=== PATIENT | female | born 1960 | race Caucasian/White ===

== ENCOUNTER → 2021-05-24 | Outpatient (CLI) | payer OTHER ==
[2021-05-24 15:37] LABS: Creatinine, Urine Random 76.2 mg/dL (27.00-270.00); Microalb/Creat Ratio UR, Rand 12.1 mg/g (0.000-30.000); Microalbumin, Random Urine 9.22 mg/L (0.000-20.000)
== END | disposition home or self-care (01) ==
LOC: LAB SHORT 13:30 → LAB 13:30
PROVIDERS: Family Medicine
DX: E11.9 Type 2 diabetes mellitus without complications (principal)
CPT/HCPCS: 82043; 82570

== ENCOUNTER 2023-07-29 18:32 | Emergency (ER) | payer OTHER ==
[~2023-07-29] VITALS: Ht 154.9 cm; Wt 99.8 kg
[2023-07-29 19:08] LABS: BASOPHILS ABSOLUTE AUTO 0.02 K/mm3 (0.00-0.23); BASOPHILS PERCENT AUTO 0 % (0-2); EOSINOPHILS ABSOLUTE AUTO 0.01 K/mm3 (0.00-0.68); EOSINOPHILS PERCENT AUTO 0 % (0-6); Hematocrit 40.8 % (33.0-51.0); IMMATURE GRAN ABSOLUTE AUTO 0.05 K/mm3 (0.00-0.10); IMMATURE GRAN PERCENT AUTO 0 % (0-1); LYMPHOCYTES ABSOLUTE AUTO 0.98 K/mm3 (0.84-5.20); LYMPHOCYTES PERCENT AUTO 7 % (21-46); MONOCYTES ABSOLUTE AUTO 0.77 K/mm3 (0.16-1.47); MONOCYTES PERCENT AUTO 6 % (4-13); Mean Corpuscular HGB 27.8 pg (26.0-34.0); Mean Corpuscular HGB Conc 31.9 g/dL (31.5-36.5); Mean Corpuscular Volume 87 fL (80-100); Mean Platelet Volume 10.2 fL (9.1-12.4); NEUTROPHILS ABSOLUTE AUTO 11.88 K/mm3 (1.96-9.15); NEUTROPHILS PERCENT AUTO 87 % (41-73); Platelet Count 329 K/mm3 (150-400); RDW Coefficient Variation 13.8 % (11.7-14.2); RDW Standard Deviation 44.3 fL (35.1-46.3); Red Blood Cell Count 4.68 M/mm3 (3.80-5.20); White Blood Cell Count 13.71 K/mm3 (4.00-11.30)
[2023-07-29 19:45] LABS: Bun/Creatinine Ratio 28.9 (12.0-20.0); Calcium, Blood 9.5 mg/dL (8.5-10.1); Creatinine, Blood 0.62 mg/dL (0.40-1.00); Potassium, Blood 4.1 mmol/L (3.5-5.5)
[2023-07-29] MEDS ORDERED: LOSA50 PO (21:52)
[2023-07-29] MEDS ORDERED: EUTHYROX150 MC1 PO (21:52)
[2023-07-29] MEDS ORDERED: Simvastatin20 MG PO (21:52)
[2023-07-29 21:53] LABS: Source, Urine Clean Catch
[2023-07-29 21:56] VITALS: BP 143/71
[2023-07-29 22:01] LABS: Bilirubin, Urine Neg (Neg); Blood, Urine 2+ (Neg); Glucose Qualitative, Urine Neg (Neg); Ketones, Urine 1+ (Neg); Leukocyte Esterase, Urine Neg (Neg); Nitrite, Urine Neg (Neg); Protein, Urine 2+ (Neg); Specific Gravity, Urine 1.025 (1.003-1.022); Urobilinogen, Urine NORM (Normal)
[2023-07-29 22:22] LABS: Appearance, Urine Hazy (Clear); Color, Urine Yellow (P-Yellow)
[2023-07-29 22:23] LABS: Bacteria Few /hpf; Mucus Light (0-Heavy); Red Blood Cells, Urine 0-2 /hpf (0-2); Squamous Epithelial Cells Few /hpf (Few); White Blood Cells, Urine 0-2 /hpf (0-5)
[2023-07-30 00:29] LABS: Alanine Aminotransfer (ALT/SGP 16 U/L (12-78); Albumin, Blood 3.5 g/dL (3.4-5.0); Alk Phos 80 U/L (50-136); Aspartate Aminotrans (AST/SGOT 18 U/L (12-37); Bilirubin, Direct <0.1 mg/dL (0.0-0.3); Bilirubin, Indirect Unable to Calculate mg/dL (0.1-0.7); Bilirubin, Total 0.3 mg/dL (0.1-1.0); Globulin, Blood 3.5 g/dL (2.2-4.0)
[2023-07-30] MEDS ORDERED: ALMACONE SUSPE355 ML PO (00:47)
[2023-07-30] MEDS ORDERED: FAMO20 PO (00:47)
== END 2023-07-30 01:15 | disposition home or self-care (01) ==
LOC: ER 18:32
PROVIDERS: Emergency Medicine; Physician Assistant
DX: K21.9 Gastro-esophageal reflux disease without esophagitis (principal); Z88.0 Allergy status to penicillin; Z79.890 Hormone replacement therapy; Z79.899 Other long term (current) drug therapy
CPT/HCPCS: 74019; 76705; 80048; 80076; 81001; 83690; 85025; 93005; 93010; 96374; 96375; 99284-25; A9270; J1885; J2405

== ENCOUNTER → 2023-08-01 | Outpatient (CLI) | payer OTHER ==
[~2023-08-01] MED LIST: ALMACONE SUSPE355 ML PO; EUTHYROX150 MC1 PO; FAMO20 PO; LOSA50 PO; Simvastatin20 MG PO
[2023-08-02 13:46] LABS: Stool Occult Bld Immuno 1 Negative (NEGATIVE)
== END ==
LOC: LAB 16:01 → LAB SHORT 16:01
PROVIDERS: Family Medicine
DX: K92.1 Melena (principal)
CPT/HCPCS: G0328

== ENCOUNTER 2023-10-03 13:08 | Inpatient (IN) | payer OTHER ==
[2023-10-03] VITALS (27 sets, daily range): BP systolic 107–146; BP diastolic 69–112
[~2023-10-03] VITALS: Ht 165.1 cm; Wt 97.9 kg
[2023-10-03 13:37] LABS: BASOPHILS ABSOLUTE AUTO 0.04 K/mm3 (0.00-0.23); BASOPHILS PERCENT AUTO 0 % (0-2); EOSINOPHILS ABSOLUTE AUTO 0.12 K/mm3 (0.00-0.68); EOSINOPHILS PERCENT AUTO 1 % (0-6); Hematocrit 40.4 % (33.0-51.0); Hemoglobin 12.4 g/dL (11.5-16.0); IMMATURE GRAN ABSOLUTE AUTO 0.15 K/mm3 (0.00-0.10); IMMATURE GRAN PERCENT AUTO 2 % (0-1); LYMPHOCYTES ABSOLUTE AUTO 3.51 K/mm3 (0.84-5.20); LYMPHOCYTES PERCENT AUTO 37 % (21-46); MONOCYTES ABSOLUTE AUTO 0.93 K/mm3 (0.16-1.47); MONOCYTES PERCENT AUTO 10 % (4-13); Mean Corpuscular HGB 27.9 pg (26.0-34.0); Mean Corpuscular HGB Conc 30.7 g/dL (31.5-36.5); Mean Corpuscular Volume 91 fL (80-100); Mean Platelet Volume 9.8 fL (9.1-12.4); NEUTROPHILS ABSOLUTE AUTO 4.86 K/mm3 (1.96-9.15); NEUTROPHILS PERCENT AUTO 51 % (41-73); Platelet Count 366 K/mm3 (150-400); RDW Coefficient Variation 15.6 % (11.7-14.2); Red Blood Cell Count 4.44 M/mm3 (3.80-5.20); White Blood Cell Count 9.61 K/mm3 (4.00-11.30)
[2023-10-03 13:53] LABS: Base Excess Venous -3.3 mmol/L; Bicarbonate Venous 21.4 mmol/L (24.0-30.0); PCO2 Venous 46.5 mmHg (38-42)
[2023-10-03 14:01] LABS: Albumin, Blood 3.2 g/dL (3.4-5.0); Albumin/Globulin Ratio 0.9 (0.8-1.8); Bilirubin, Total 0.2 mg/dL (0.1-1.0); Bun/Creatinine Ratio 19.6 (12.0-20.0); Calcium, Blood 8.3 mg/dL (8.5-10.1); Creatinine, Blood 0.82 mg/dL (0.40-1.00); Globulin, Blood 3.6 g/dL (2.2-4.0); Magnesium, Blood 2.1 mg/dL (1.6-2.4); Potassium, Blood 4.5 mmol/L (3.5-5.5); Total Protein, Blood 6.8 g/dL (6.4-8.2)
[2023-10-03] MEDS ORDERED: OMEP20ER PO (14:46)
[2023-10-03] MEDS ORDERED: EUTHYROX175 MC1 PO (14:46)
[2023-10-03 15:14] LABS: Source, Urine Foley catheter
[2023-10-03 15:17] LABS: Bilirubin, Urine Neg (Neg); Blood, Urine 4+ (Neg); Color, Urine Yellow (P-Yellow); Glucose Qualitative, Urine 2+ (Neg); Ketones, Urine Neg (Neg); Leukocyte Esterase, Urine Neg (Neg); Nitrite, Urine Neg (Neg); Protein, Urine 4+ (Neg); Specific Gravity, Urine 1.015 (1.003-1.022); Urobilinogen, Urine NORM (Normal)
[2023-10-03 15:21] LABS: Appearance, Urine Hazy (Clear)
[2023-10-03 15:29] LABS: Bacteria Many /hpf; Granular Casts 0-2 /lpf (0); Hyaline Casts 0-2 /lpf (0-2); Red Blood Cells, Urine 25-50 /hpf (0-2); Squamous Epithelial Cells Mod /hpf (Few)
[2023-10-03 15:30] LABS: Transitional Epithelial Cells Rare /hpf (0-Rare)
[2023-10-03 15:33] LABS: U Amphetamine Screen Not Detected; U Barbituate Screen Not Detected; U Benzodiazapine Screen Not Detected; U Buprenorphine Screen Not Detected; U Cannabinoids Screen Not Detected; U Cocaine Screen Not Detected; U Methadone Screen Not Detected; U Methamphetamine Screen Not Detected; U Opiates Screen Not Detected; U Oxycodone Screen Not Detected; U Phencyclidine Screen Not Detected
--- NOTE | 2023-10-03 15:44 | NUR ---
Supportive visit in the ED. Pt resting on gurney, is intubated, sedated, and non responsive. Pt's mother Licha, and Pt's sister Mirela at bedside. Offered gentle voice and therapeutic listening. 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 Family moved up from [place] some time back. Family reports Pt is high functioning but has struggled with finding a job since moving to [place]. Family reports Pt scored 1 point to high with her IQ to receive assistance with job placement here in [place]. In [place] Pt worked with assistance for job placement. Continued therapeutic visit. Pt to go to [place]. Family agreeable with continued Palliative Care visits. Spoke with Dr Evans and discussed case. Palliative Care will remain available
[2023-10-03 17:24] LABS: International Normalized Ratio 0.93; Prothrombin Time Results 9.8 Sec (9.7-11.5)
--- NOTE | 2023-10-03 17:59 | NUR ---
ADMIT PT ARRIVED TO ICU 7 AT 1655 VIA ER BED. PT IS INTUBATED AND SEDATED UPON ARRIVAL. PT TRANSFERED TO ICU BED. PT NOT RESPONSIVE TO VERBAL STIMULI. PT WITHDRAWS AND INTERNALLY ROTATES BUE'S AND BLE'S TO NOXIOUS STIMULI. MINIMAL COUGH AND GAG REFLEX WITH SUCTION. VENT SETTINGS AC 14, TV 450, PEEP 5, FIO2 30%. OGT IN PLACE. SPICER TEMP PROBE IN PLACE. AMIODARONE INFUSING AT 1 MG/MIN AND PROPOFOL AT 20 MCG/KG/MIN. NS STARTED AT 100 ML/HR. VITAL SIGNS STABLE AT THIS TIME. PT SISTER AND MOTHER AT BEDSIDE DISCUSSING PLAN OF CARE WITH DR BRIGGS AT THIS TIME. WILL CONTINUE TO MONITOR AND REPORT OFF TO ONCOMING RN.
[2023-10-04] VITALS (72 sets, daily range): BP systolic 94–145; BP diastolic 58–88
[2023-10-04 03:22] LABS: Hematocrit 37.5 % (33.0-51.0); Hemoglobin 12.1 g/dL (11.5-16.0); Mean Corpuscular HGB 28.5 pg (26.0-34.0); Mean Corpuscular HGB Conc 32.3 g/dL (31.5-36.5); Mean Corpuscular Volume 88 fL (80-100); Mean Platelet Volume 9.5 fL (9.1-12.4); Platelet Count 237 K/mm3 (150-400); RDW Coefficient Variation 16.1 % (11.7-14.2); RDW Standard Deviation 51.9 fL (35.1-46.3); Red Blood Cell Count 4.25 M/mm3 (3.80-5.20); White Blood Cell Count 11.58 K/mm3 (4.00-11.30)
[2023-10-04 03:42] LABS: Albumin/Globulin Ratio 0.9 (0.8-1.8); Bilirubin, Total 0.6 mg/dL (0.1-1.0); Calcium, Blood 8.6 mg/dL (8.5-10.1); Creatinine, Blood 0.74 mg/dL (0.40-1.00); Globulin, Blood 3.3 g/dL (2.2-4.0); Magnesium, Blood 1.9 mg/dL (1.6-2.4); Phosphorus, Blood 3.2 mg/dL (2.5-4.9); Potassium, Blood 4.3 mmol/L (3.5-5.5); Total Protein, Blood 6.3 g/dL (6.4-8.2)
--- NOTE | 2023-10-04 06:00 | NUR ---
SHIFT SUMMARY: NO ACUTE CHANGES OVERNIGHT. PT REMAINS INTUBATED AND SEDATED WITH VENT SETTINGS AC/VC 14/450/5/30% AND PROPOFOL GTT @ 20 MCG/KG/MIN. PT HAS BEEN ONLY RESPONSIVE TO PAIN; PT WITHDRAWLS FROM PAIN STIMULI AND OPENED EYES ONCE TO A PAIN STIMULI. PT OBSERVED MOVING ARMS AND LEGS PERIODICALLY; PUPILS ARE EQUAL AND RESPONSIVE TO LIGHT BILATERALLY. PT HAS POSTIVE GAG/COUGH OBSERVED. PT DOES NOT RESPOND TO VERBAL STIMULI OR FOLLOW COMMANDS AT THIS TIME. LUNG SOUNDS ARE CLEAR WITH DIM BASES; OCCAS. COARSE WHEN NEEDING TO BE SUCTIONED. SPUTUM CULTURE SENT OFF THIS SHIFT. PT ON MONITOR SHOWING BBB WITH HR 60-70, SBP 100-110; AMIO GTT @ 0.5 MG/HR. HYPOACTIVE BOWEL SOUNDS NOTED IN ALL QUADRANTS, ABD OBESE, SOFT AND NON-TENDER; OGT IN PLACE AND CLAMPED AT THIS TIME. PT HAS TEMP SPICER IN PLACE THAT IS DRAINING TO GRAVITY; URINE CLEAR, YELLOW WITH 1250 OUTPUT THIS SHIFT. PT TMAX AT 100.2, TYLENOL GIVEN PER EMAR AND TEMP DOWN TO 98.9. SKIN OVERALL INTACT, COOL, AND PPP X 4. PIV TO LWR WITH PROPOFOL INFUSING; PIV FLUSHES AND BLOOD RETURN NOTED. PIV TO SANCHO WITH AMIO AND NS @ 100 MLS/HR INFUSING; PIV FLUSHES AND BLOOD RETURN NOTED. PT RECIEVED COMPLETE BED BATH WITH CHG AND LINEN CHANGE THIS SHIFT. PT'S MOTHER AT BEDSIDE THROUGHOUT THE NIGHT AND UPDATED ON CARE PROVIDED. BED LOWERED, CALL LIGHT IN REACH, WILL REPORT OFF TO ONCOMING RN.
--- NOTE | 2023-10-04 18:54 | NUR ---
SUMMARY PT INTUBATED AND SEDATED WITH PROPOFOL. SEDATION VACATION THIS AM AND PT WAS ABLE TO FOLLOW COMMANDS AND RECOGNIZES FAMILY. SPONTANEOUS TRIAL WAS DONE BUT AFTER AWHILE SPO2 DROPPED TO 87% AND WAS HAVING INCREASED WAYNE THICK SECRETIONS FROM ETT. RESEDATED AND VENT SETTINGS BACK TO PREVIOUS. PO AMIODORONE WAS STARTED TODAY THROUGH OGT. NO OTHER ACUTE CHANGES. FAMILY AT BEDSIDE AND UPDATED T/O THE DAY.
[2023-10-05] VITALS (59 sets, daily range): BP systolic 101–148; BP diastolic 61–101
--- NOTE | 2023-10-05 05:31 | NUR ---
SHIFT SUMMERY PT IS ALERT AND ORIENTED X4, INDEPENDENT W/AMBULATION, MAEW, CONTINENT OF BOWEL AND BLADDER. SHE IS ON ROOM AIR W/OXYGEN SAT 100% OVERNIGHT. PT HAS BEEN PACED, AFIB, AFLUTTER AND SR ON THE GLOBAL TECHNICAL WRITER. PT BECAME TACHYCARDIC IN THE 140S, PRN METOPROLOL GIVEN PER EMAR. PT HR RETURNED TO THE 80S. BP REMAINED STABLE IT HAS BEEN THROUGHOUT THE NIGHT. PT HAS BEEN AFEBRILE AND HAS BEEN UP TO THE BEDSIDE COMMODE AND VOIDED SEVERAL TIMES WITHOUT ISSUE OR DIFFICULTY.
--- NOTE | 2023-10-05 05:48 | NUR ---
SHIFT SUMMERY PT IS INTUBATED VIA ETT, INTACT AND PATENT TO THE VENTILATOR. OXYGEN SAT >95%. MODERATE AMOUNT OF THICK WAYNE SECRETIONS NOTED W/IN LINE SUCTION. PROPOFOL INFUSING FOR SEDATION, SEE FLOWSHEET. TEMP SPICER INTACT PATENT AND DRAINING TO GRAVITY. OG TUBE CLAMPED. PT WAS FEBRILE OVERNIGHT, TREATED W/ TYLENOL-SEE EMAR. PT HAS BEEN SR ON THE INFORMATION SYSTEMS CONSULTANT, BP WNL. PEEP INCREASED TO 8 BY RT FOR SUBOPTIMAL TIDAL VOLUMES. NO OTHER CHANGES TO PT POC OVERNIGHT.
--- NOTE | 2023-10-05 07:00 | NUR ---
ASSUMPTION OF CARE PT RECEIVING PROPOFOL 20MCG/KG/HR. SHE IS INTUBATED WITH VENT SETTINGS AC/VC 14/450/7/30%. PT HAS LARGE AMOUNTS OF ORAL SECRETIONS, MODERATE AMOUNT OF THICK WAYNE/PINK. OGT CLAMPED. TEMP SPICER PATENT AND DRAINING CLEAR YELLOW URINE. VSS AT THIS TIME. PROPOFOL OFF AT 0745. PT AWAKE, FOLLOWING SIMPLE COMMANDS. RT AT BEDSIDE AND TRANSITIONED PT TO SPONT. RR 19-30, TV 300S-400S.
[2023-10-05 07:08] LABS: BASOPHILS ABSOLUTE AUTO 0.02 K/mm3 (0.00-0.23); BASOPHILS PERCENT AUTO 0 % (0-2); EOSINOPHILS ABSOLUTE AUTO 0.05 K/mm3 (0.00-0.68); EOSINOPHILS PERCENT AUTO 1 % (0-6); Hematocrit 37.1 % (33.0-51.0); Hemoglobin 11.7 g/dL (11.5-16.0); IMMATURE GRAN ABSOLUTE AUTO 0.04 K/mm3 (0.00-0.10); IMMATURE GRAN PERCENT AUTO 0 % (0-1); LYMPHOCYTES ABSOLUTE AUTO 1.16 K/mm3 (0.84-5.20); LYMPHOCYTES PERCENT AUTO 11 % (21-46); MONOCYTES PERCENT AUTO 12 % (4-13); Mean Corpuscular HGB 28.6 pg (26.0-34.0); Mean Corpuscular HGB Conc 31.5 g/dL (31.5-36.5); Mean Corpuscular Volume 91 fL (80-100); Mean Platelet Volume 9.8 fL (9.1-12.4); NEUTROPHILS ABSOLUTE AUTO 8.45 K/mm3 (1.96-9.15); NEUTROPHILS PERCENT AUTO 77 % (41-73); Platelet Count 206 K/mm3 (150-400); RDW Coefficient Variation 16.6 % (11.7-14.2); Red Blood Cell Count 4.09 M/mm3 (3.80-5.20); White Blood Cell Count 11.02 K/mm3 (4.00-11.30)
[2023-10-05 07:22] LABS: Bun/Creatinine Ratio 17.6 (12.0-20.0); Calcium, Blood 8.4 mg/dL (8.5-10.1); Creatinine, Blood 0.62 mg/dL (0.40-1.00); Potassium, Blood 3.5 mmol/L (3.5-5.5)
--- NOTE | 2023-10-05 11:17 | NUR ---
UPDATE/EXTUBATION PT ON SEDATION VACATION SINCE 744. PT IS AWAKE, FOLLOWING SIMPLE COMMANDS. DR BRIGGS AT BEDSIDE AND APPROVAL FOR EXTUBATION. KODAK RT AT BEDSIDE. PT EXTUBATED AT 1045. PT PLACED ON 2L NC. PT HAS WEAK COUGH, SPO2 RAPIDLY DECREASED TO 40S% AND THEN INCREASED TO 70S%. TITRATED TO 6L NC. PT COUGH IMPROVING, SUCTIONING PROVIDED. SPO2 NOW >95%. AUDIBLE STRIDOR. DR BRIGGS NOTIFIED AND AT BEDSIDE. ORDERS RECEIVED, SEE EMAR. PT'S MOTHER AND SISTER AT BEDSIDE DURING THIS EVENT AND UPDATED.
--- NOTE | 2023-10-05 18:07 | NUR ---
SHIFT SUMMARY PT EXTUBATED AT 1045. SEE PREVIOUS NOTE REGARDING DESATURATION AND STRIDOR. PT HAS BEEN ON 2L NC WITH AIR FACE TENT AND HAS TOLERATED WELL. RR 18-25. SPO2 >93%. PT HAS A PRODUCTIVE COUGH. SHE IS A&OX3, PARTICIPATES IN CONVERSATION AND ASSISTS WITH CARE ABLE. PT STS SHE WANTS TO GO HOME. PT'S MOTHER BROUGHT IN STUFFED ANIMALS FROM HOME FOR COMFORT. SHE REMAINS NPO AT THIS TIME. SPEECH THERAPY CONSULTED. PT SAT IN CHAIR FOR A FEW HOURS WITH CEILING LIFT DUE TO WEAKNESS. SPICER PATENT AND DRAINING DARK YELLOW URINE WITH SEDIMENT. 600ML OUTPUT THIS SHIFT. MOTHER AND SISTER AT BEDSIDE THROUGHOUT MOST OF THE DAY AND UPDATED. BED IN LOW POSITION, CALL LIGHT WITHIN REACH.
--- NOTE | 2023-10-05 20:42 | NUR ---
ASSUMPTION OF CARE THIS RN ASSUMED CARE AT APPROX 1915. PATIENT IS ALERT AND ORIENTED X3. UNSURE OF SMALLER DETAILS, SUCH DATE/TIME. ABLE TO COMMUNICATE NEEDS EFFECTIVELY, SOFT SPEECH NOTED. MOTHER AT BEDSIDE. VSS. BP STABLE. DENIES CHEST PAIN OR PRESSURE. IS ON 2L VIA NASAL CANNULA AND FACEMASK, SATS >90%. RECEIVING A BREATHING TREATMENT AT ASSUMPTION OF CARE. STRIDOR AUSCULTATED UPPER LOBES, DIMINISHED LOWER LOBES. URINARY CATHETER IN PLACE, PATENT, DRAINING YELLOW URINE TO GRAVITY. PATIENT REPORTS NO PAIN AT THIS TIME. CALL LIGHT IN REACH.
--- NOTE | 2023-10-05 21:47 | NUR ---
UPDATE AMIODARONE GTT NOW INFUSING PER EMAR. NO ACUTE CHANGES SINCE ASSUMPTION OF CARE. BP STABLE. REMAINS ON 2L VIA NASAL CANNULA. CONTINUING TO NOTE ELEVATED TEMP, TRENDING AT 99.0. REMOVED ADDITIONAL BLANKETS AND FAN TURNED ON. CALL LIGHT IN REACH.
[2023-10-06] VITALS (14 sets, daily range): BP systolic 109–146; BP diastolic 64–86
[2023-10-06 03:09] LABS: BASOPHILS ABSOLUTE AUTO 0.01 K/mm3 (0.00-0.23); BASOPHILS PERCENT AUTO 0 % (0-2); EOSINOPHILS PERCENT AUTO 0 % (0-6); Hematocrit 36.2 % (33.0-51.0); Hemoglobin 11.6 g/dL (11.5-16.0); IMMATURE GRAN ABSOLUTE AUTO 0.05 K/mm3 (0.00-0.10); IMMATURE GRAN PERCENT AUTO 1 % (0-1); LYMPHOCYTES ABSOLUTE AUTO 0.64 K/mm3 (0.84-5.20); LYMPHOCYTES PERCENT AUTO 6 % (21-46); MONOCYTES ABSOLUTE AUTO 0.44 K/mm3 (0.16-1.47); MONOCYTES PERCENT AUTO 4 % (4-13); Mean Corpuscular HGB 28.1 pg (26.0-34.0); Mean Corpuscular Volume 88 fL (80-100); Mean Platelet Volume 9.5 fL (9.1-12.4); NEUTROPHILS ABSOLUTE AUTO 9.08 K/mm3 (1.96-9.15); NEUTROPHILS PERCENT AUTO 89 % (41-73); Platelet Count 235 K/mm3 (150-400); RDW Standard Deviation 51.6 fL (35.1-46.3); Red Blood Cell Count 4.13 M/mm3 (3.80-5.20); White Blood Cell Count 10.22 K/mm3 (4.00-11.30)
[2023-10-06 03:25] LABS: Albumin, Blood 2.7 g/dL (3.4-5.0); Anion Gap 4 mmol/L (6-16); Blood Urea Nitrogen 11 mg/dL (8-24); Bun/Creatinine Ratio 16.4 (12.0-20.0); CO2, Blood 26 mmol/L (21-32); Calcium, Blood 8.8 mg/dL (8.5-10.1); Chloride, Blood 112 mmol/L (98-108); Creatinine, Blood 0.67 mg/dL (0.40-1.00); Glomerular Filtration Rate 98 (60-); Glucose, Blood 154 mg/dL (70-99); Magnesium, Blood 2.2 mg/dL (1.6-2.4); Phosphorus, Blood 3.7 mg/dL (2.5-4.9); Potassium, Blood 4.4 mmol/L (3.5-5.5); Sodium, Blood 142 mmol/L (136-145)
--- NOTE | 2023-10-06 04:41 | NUR ---
SHIFT SUMMARY NO ACUTE CHANGES SINCE PREVIOUS NOTES. PATIENT REMAINS ALERT AND ORIENTED X3. SLEPT PERIODICALLY THROUGHOUT. ABLE TO COMMUNICATE NEEDS. YELLS OUT INTO HALLWAY FOR NEEDS. OCCASSIONALLY USES CALL LIGHT. CAN BE FORGETFUL, DOES NOT ATTEMPT TO AMBULATE OUT OF BED OR PULL AT LINES. VS REMAIN STABLE. MAX TEMPERATURE, 99.9, TRENDED DOWN THROUGHOUT NIGHT, NOW AT 98.6. BP STABLE. AMIODARONE GTT INFUSING PER EMAR. REMAINS ON 2L VIA NASAL CANNULA. FACEMASK REMOVED AT PATIENT REQUEST. SATS REMAIN >90%. OCCASSIONAL PRODUCTIVE COUGH, IS ABLE TO USE SUCTION INDEPENDENTLY NEEDED. VOIDING YELLOW URINE. SPICER CATHETER REMOVED THIS MORNING, ATTENDS NOW IN PLACE. NO BM THIS SHIFT. REPOSITIONED REGULARLY AT PATIENT REQUEST AND WHEN TOLERATED. CALL LIGHT IN REACH. WILL REPORT TO ONCOMING RN.
--- NOTE | 2023-10-06 08:00 | NUR ---
ASSUMED CARE CARE WAS ASSUMED OF PT AT 0700. PT A/O X3, PT ABLE TO ANSWER QUESTIONS APPROPRIATELY EXCEPT FOR STATING THAT IT WAS 2003. PT FORGETFUL, CALLING OUT FOR HELP WHEN STAFF ARE NOT IN ROOM. WHEN PT'S FAMILY IS IN ROOM PT IS CALM. PT PASSED SWALLOW EVALUATION THIS MORNING. MEAL TRAY ORDERED. PT ON 2 L N/C AT SHIFT CHANGE. O2 SATS > 92%. CARDIAC MONITORING REFLECTS, HR 60s-70s. AMIODARONE GTT WAS INFUSING, BUT TRANSITIONED TO PO AMIODARONE D/T PT PASSING BEDSIDE SWALLOW EVALUATION. SBP 110s.
--- NOTE | 2023-10-06 14:54 | NUR ---
TRANSFER UPDATE REPORT RECIEVED FROM SHUTTLE BUS DRIVER AT 1410. PT RARRIVED TO PCU AT 1420 VIA HOSPITAL BED AND ON 2L NC. PT A/OX2-3 AT TIME OF ARRIVAL. NO REPORT OF SOB/DYSPNEA. PT STATED PAIN TO THE CENTER OF CHEST THAT IS RELIEVED WHEN TAKING IN DEEP BREATHS. PAIN DOES NOT RADIATE. LUNGS SOUND DIM THROUGHOUT. PT BELONGINGS IN BAGS AND TRANSFERED WITH PT. PT MOTHER TO PT ROOM SHORTLY AFTER ARRIVING. PHYSICAL THERAPY TO PT ROOM SHORTLY AFTER ARRIVING TO PCU. PT ORIENTED TO ROOM AND CALL LIGHT.
--- NOTE | 2023-10-06 16:29 | NUR ---
PT LEFT U FOR STRESS TEST AT 1420 VIA [employer]. PT ABLE TO TRANSFER TO [facility] WITH MINIMAL ASSISTANCE USING GAIT BELT. PT ON RA AT TIME OF TRANSFER.
--- NOTE | 2023-10-06 17:33 | NUR ---
SHIFT SUMMARY PT A/OX2-3 SINCE ARRIVAL TO UNIT. PT SATS DOWN TO 80'S ON RA WHEN RETURNING FROM STRESS TEST, 2L NC REAPLIED, SATS RETURNED TO 90'S QUICKLY. PTNOTED TO HAVE SKIN TEAR ON MID-RIGHT BACK, PICTURE IN CHART. PT SEEN BY PHYSICAL THERAPY, SEE THERAPIST NOTES. PT TO BE NPO AFTER MIDNIGHT FOR ANGIO TOMORROW, PT AND MOTHER UPDATED. NO ACUTE EVENTS SINCE ARRIVAL TO UNIT.
[2023-10-06 23:37] LABS: Vancomycin, Trough 12.1 ug/mL (5.0-10.0)
[2023-10-07] VITALS (13 sets, daily range): BP systolic 134–156; BP diastolic 65–114
--- NOTE | 2023-10-07 04:30 | NUR ---
SHIFT SUMMARY NO ACUTE CHANGES OVERNIGHT. PT A&O X3. FORGETFUL AT TIMES. NEEDS STAFF REMINDERS OF PLAN OF CARE. SISTER IN ROOM ALL NIGHT. PT USING WALKER TO AMBULATE TO BATHROOM. BP STABLE. SR ON MONITOR. DENIES CHEST PAIN/PRESSURE. ON 2L VIA NC WITH SPO2 >92%. PT ABLE TO REPOSITION SELF IN BED. BED IN LOWEST POSITION AND CALL LIGHT WITHIN REACH. THIS RN WILL REPORT TO ONCOMING DAYSHIFT RN.
[2023-10-07 07:45] LABS: Hematocrit 39.1 % (33.0-51.0); Hemoglobin 12.5 g/dL (11.5-16.0); Mean Corpuscular HGB 27.8 pg (26.0-34.0); Mean Corpuscular Volume 87 fL (80-100); Mean Platelet Volume 9.6 fL (9.1-12.4); Platelet Count 294 K/mm3 (150-400); RDW Coefficient Variation 15.8 % (11.7-14.2); RDW Standard Deviation 50.7 fL (35.1-46.3); Red Blood Cell Count 4.49 M/mm3 (3.80-5.20); White Blood Cell Count 12.54 K/mm3 (4.00-11.30)
[2023-10-07 08:25] LABS: Albumin, Blood 2.9 g/dL (3.4-5.0); Albumin/Globulin Ratio 0.7 (0.8-1.8); Bilirubin, Total 0.3 mg/dL (0.1-1.0); Bun/Creatinine Ratio 25.6 (12.0-20.0); Calcium, Blood 9.1 mg/dL (8.5-10.1); Creatinine, Blood 0.7 mg/dL (0.40-1.00); Globulin, Blood 3.9 g/dL (2.2-4.0); Potassium, Blood 3.9 mmol/L (3.5-5.5); Total Protein, Blood 6.8 g/dL (6.4-8.2)
--- NOTE | 2023-10-07 14:44 | NUR ---
Pt arrived from the heart center post angiogram, alert, oriented, calm and appropriate in conversation. Mom is at the beside, and Dr. Garcia, lawn service manager was giving her a report on the procedure. Vital signs are stable and right ulnar site visualized, no edema, no bleeding, no bruising and no evidence of hematoma. TR band is in place, per report 14 cc air in the band. Pt is sitting up, eating a snack and on 4 l/min of oxygen to keep spo2 greater than 90%. Before eating she was having an occasional cough with sputum production. Mild wheezing was noted bilaterally this morning on assessment. Pt states that she can hear herself wheezing sometimes. No coughing noted while eating and drinking.
--- NOTE | 2023-10-07 15:02 | NUR ---
WEANED DOWN TO 3 L/MIN O2 DELIVERY. Encouraged deep breathing and coughing.
--- NOTE | 2023-10-07 16:57 | NUR ---
TR band is fully deflated, remains in place with white immoblizer board in place. Pt has been compliant with activity restrictions for the right wrist. Her mom and sister are at the bedside. NO bruising, no bleeding, no swelling nor hematoma on right arm/hand.
[2023-10-07 23:41] LABS: Vancomycin, Trough 14.8 ug/mL (5.0-10.0)
[2023-10-08] VITALS (9 sets, daily range): BP systolic 138–184; BP diastolic 78–118
[2023-10-08 04:05] LABS: BASOPHILS ABSOLUTE AUTO 0.01 K/mm3 (0.00-0.23); BASOPHILS PERCENT AUTO 0 % (0-2); EOSINOPHILS PERCENT AUTO 0 % (0-6); Hematocrit 37.3 % (33.0-51.0); Hemoglobin 12.1 g/dL (11.5-16.0); IMMATURE GRAN ABSOLUTE AUTO 0.04 K/mm3 (0.00-0.10); IMMATURE GRAN PERCENT AUTO 0 % (0-1); LYMPHOCYTES ABSOLUTE AUTO 0.82 K/mm3 (0.84-5.20); LYMPHOCYTES PERCENT AUTO 9 % (21-46); MONOCYTES ABSOLUTE AUTO 0.63 K/mm3 (0.16-1.47); MONOCYTES PERCENT AUTO 7 % (4-13); Mean Corpuscular HGB 27.8 pg (26.0-34.0); Mean Corpuscular HGB Conc 32.4 g/dL (31.5-36.5); Mean Corpuscular Volume 86 fL (80-100); Mean Platelet Volume 9.2 fL (9.1-12.4); NEUTROPHILS ABSOLUTE AUTO 7.98 K/mm3 (1.96-9.15); NEUTROPHILS PERCENT AUTO 84 % (41-73); Platelet Count 285 K/mm3 (150-400); RDW Coefficient Variation 15.5 % (11.7-14.2); RDW Standard Deviation 49.1 fL (35.1-46.3); Red Blood Cell Count 4.35 M/mm3 (3.80-5.20); White Blood Cell Count 9.48 K/mm3 (4.00-11.30)
[2023-10-08 04:32] LABS: Albumin, Blood 2.7 g/dL (3.4-5.0); Anion Gap 3 mmol/L (6-16); Blood Urea Nitrogen 18 mg/dL (8-24); Bun/Creatinine Ratio 26.7 (12.0-20.0); CO2, Blood 29 mmol/L (21-32); Calcium, Blood 8.9 mg/dL (8.5-10.1); Chloride, Blood 109 mmol/L (98-108); Creatinine, Blood 0.67 mg/dL (0.40-1.00); Glomerular Filtration Rate 98 (60-); Glucose, Blood 139 mg/dL (70-99); Potassium, Blood 4.1 mmol/L (3.5-5.5); Sodium, Blood 141 mmol/L (136-145)
--- NOTE | 2023-10-08 05:40 | NUR ---
SHIFT SUMMARY THIS RN ASSUMED CARE OF PATIENT AT 1900. PT A&O X3. ABLE TO MAKE NEEDS KNOWN. NO MENTATION CHANGES. PT CONTINUES TO NEED REMINDERS OF PLAN OF CARE AND IS UNABLE TO UNDERSTAND NOT BEING READY FOR DISCHARGE TODAY. WILL CONTINUE TO REINFORCE EDUCATION. RT RADIAL SITE REMAINS UNCHANGED SINCE THIS RN CAME ON SHIFT. SITE WITH BRUISING AROUND PUNCTURE SITE, DRESSING C/D/I, ARMBOARD IN PLACE. REINFORCING EDUCATION REGARDING ROM RESTRICTIONS OF RIGHT WRIST. BP STABLE. SR ON MONITOR WITH HR 60'S. ON 2L VIA NC WITH SPO2 >92%. AFEBRILE. SISTER AT BEDSIDE THROUGHOUT THIS SHIFT. BED IN LOWEST POSITION AND CALL LIGHT WITHIN REACH. THIS RN WILL REPORT TO ONCOMING DAYSHIFT RN.
--- NOTE | 2023-10-08 16:41 | NUR ---
TRANSFER NOTE PT TRANSFERRED FROM PCU, REPORT RECEIVED FROM AURE KATZ. PT ORIENTED TO THE ROOM AND MOTHER TOLD SHE COULD STAY THE NIGHT WITH THE PT BHARAT.
[2023-10-09 05:55] VITALS: BP 159/110
--- NOTE | 2023-10-09 06:36 | NUR ---
ADOLFO AMOS, PT RESTING IN BED WITH MOTHER AT BEDSIDE, BED ALARM ON. PT ABLE TO AMBULATE TO BR TO VOID WITH SBA. PT MEDICATED FOR PAIN X 1. WARM PACK GIVEN TO PT FOR PAIN TO RIGHT ARM , BUT C/O PAIN TO RIBS WELL. CALL LIGHT IN REACH BED ALARM ON.
[2023-10-09 07:56] VITALS: BP 155/120
[2023-10-09 08:00] VITALS: BP 141/94
[2023-10-09 14:33] VITALS: BP 129/91
--- NOTE | 2023-10-09 18:21 | NUR ---
SHIFT SUMMARY PT AOX4, CHILDLIKE DEMEANOR BUT VERY PLEASANT AND COOPERATIVE. MEDICATED FOR ACID REFLUX PER THE EMAR ALONG WITH PAIN FOR A HOLLOWAY PER THE EMAR. NO COMPLAINTS OF CP OR PRESSURE THIS SHIFT. PT HAS BEEN WATCHING TV AND TALKING ON HER PHONE ALL SHIFT. SHE CALLS WELL AND MAKES HER NEEDS KNOWN. WALKED THE HALLS WITH THE AUTO LEASING MANAGER THIS EVENING AND TOLERATED IT WELL. CALL LIGHT WITHIN REACH, BED IN THE LOWEST POSITION. WILL REPORT TO ONCOMING NURSE.
[2023-10-09 19:25] VITALS: BP 143/88
[2023-10-10 04:50] VITALS: BP 142/87
[2023-10-10 07:30] VITALS: BP 145/99
[2023-10-10 12:48] VITALS: BP 132/88
[2023-10-10 15:30] VITALS: BP 125/84
--- NOTE | 2023-10-10 17:52 | NUR ---
SHIFT SUMMARY: PT IS A 63 YEAR OLD FEMALE HERE 1 WEEK POST CARDIAC ARREST AT HOME AFTER AN EPISODE OF V-FIB. SHE WAS INTUBATED IN THE ED, EXTUBATED IN ICU ON 10/05, AND TRANSFERRED TO MEDICAL FLOOR. SHE UNDERWENT AN ANGIOGRAM ON 10/07 THAT CAME BACK NORMAL. SHE DID DEVELOPE BILATERAL PNEUMONIA AND IS BEING TREATED WT IV ANTIBIOTICS. THE PLAN IS TO HAVE THE PATIENT HAVE A BIVENTRICALAR PACEMAKER AND IMPLANTABLE CARDIOVERTER DEFIBRILLATOR ON THURSDAY DEPENDING ON AVAILABILITY. SHE HAS RETAINED NORMAL SINUS RHYTHM IN THE 70'S AND DENIES CHEST PAIN OR SHORTNESS OF BREATH. SHE HAS BEEN INDEPENDENT WITH HER FWW AND GOES ON WALKS OCASSIONALLY. SHE HAS BEEN IN HER BEDSIDE THE ENTIRE SHIFT WHEN SHE HAS BEEN IN HER ROOM. SHE WILL USE HER CALL LIGHT AND AT TIMES WILL CALL OUT STAFF'S NAMES OR COME OUT OF THE ROOM. SHE IS IN HER BEDSIDE CHAIR, CALL LIGHT WITHIN REACH, NO SIGNS OR SYMPTOMS OF DISTRESS. PLAN OF CARE ONGOING.
[2023-10-10 19:48] VITALS: BP 132/81
[2023-10-10 23:16] VITALS: BP 142/106
[2023-10-11 00:24] VITALS: BP 134/92
--- NOTE | 2023-10-11 02:34 | NUR ---
SHIFT DANDRE, PT VERY ACTIVE TONIGHT AMBULATING AROUND ROOM WITH WALKER, PT HAD AMBULATED IN THE HALLS TODAY PER DAY RN. PT APPEARS TO BE STEADY ON HER FEET. AT 2316 PT FELL. PT IN ROOM ON FLOOR BY RECLINER. PT STATED SHE HAD GONE TO BR ANS MISSED RECLINER WHEN TRYING TO SIT. PT STED SHE DID OT FEEL INJURED, AND DENIED PAIN . NO APPARENT INJURYS SEEN. VITALS TAKEN AND CALLED, NO ORDRED GIVEN OTHER THAN TO OBSURVE PT. AT THIS TIME PT ASLEEP IN RECLINER. CAHIR ALARM PLACED UNDER PT AND PT TOLD TO CALL TO GET UP. CALL LIGHT IN REACH.
[2023-10-11 04:42] VITALS: BP 125/76
[2023-10-11 07:42] VITALS: BP 141/85
[2023-10-11 15:33] VITALS: BP 140/78
--- NOTE | 2023-10-11 17:36 | NUR ---
SHIFT SUMMARY PT AXO, PLEASANT AND COOPERATIVE WITH CARE THOUGH ANXIOUS AT TIMES. PT STATES THAT SHE DOESNT WANT TO BE ON THE CHAIR ALARM AND STATES SHE "WONT FALL." PT EDUCATED ON REASONS FOR ALARMS. THERAPEUTIC COMMINICATION AND ACTIVE LISTENING UTILIZED. VSS. PT DENIES PAIN, SOB AND N/V BUT STATES THAT SHE IS NERVOUS FOR HER PROCEDURE TOMORROW. PT REPORTS REDUCTION IN SPUTUM AND STATES SHE IS FEELING BETTER. PT SITTING IN CHAIR THROUGHOUT THE SHIFT, CALL LIGHT WITHIN REACH, CALLS APPROPRIATELY.
[2023-10-11 19:22] VITALS: BP 138/82
[2023-10-12 03:29] VITALS: BP 134/77
--- NOTE | 2023-10-12 04:16 | NUR ---
SHIFT SUMMARY PATIENT IS ALERT AND ORIENTED. PATIENT HAS HAD NO ACUTE EVENTS THIS SHIFT. VITAL SIGNS REVIEWED. PATIENT HAS NOT COMPLAINED OF SOB, NAUSEA, OR VOMITTING THIS SHIFT. PATIENT COMPLAINED OF PAIN IN ARM WHERE THEY DID AN ANGIO EARLIER. MEDICATED PER EMAR. PATIENT HAS HAD MOTHER STAYING THE NIGHT WITH PATIENT. PATIENT HAS BEEN RESTING COMFORTABLY IN CHAIR, PER PT REQUEST. CHAIR ALARM HAS BEEN ON DUE TO FALL IN PREVIOUS TRIAL JUSTICE. WILL MONITOR UNTIL SHIFT CHANGE.
[2023-10-12 05:01] LABS: Hematocrit 38.2 % (33.0-51.0); Hemoglobin 11.9 g/dL (11.5-16.0); Mean Corpuscular HGB 27.8 pg (26.0-34.0); Mean Corpuscular HGB Conc 31.2 g/dL (31.5-36.5); Mean Corpuscular Volume 89 fL (80-100); Mean Platelet Volume 9.3 fL (9.1-12.4); Platelet Count 338 K/mm3 (150-400); RDW Coefficient Variation 15.9 % (11.7-14.2); RDW Standard Deviation 51.9 fL (35.1-46.3); Red Blood Cell Count 4.28 M/mm3 (3.80-5.20)
[2023-10-12 05:26] LABS: Bun/Creatinine Ratio 20.4 (12.0-20.0); Calcium, Blood 8.8 mg/dL (8.5-10.1); Creatinine, Blood 0.64 mg/dL (0.40-1.00)
[2023-10-12 07:49] VITALS: BP 142/79
[2023-10-12 16:13] VITALS: BP 129/89
[2023-10-12] MEDS ORDERED: PACERONE100 M1 PO (17:58)
[2023-10-12] MEDS ORDERED: LEVE500 PO (17:59)
[2023-10-12] MEDS ORDERED: JARDIANCE10 MG PO (17:59)
[2023-10-12] MEDS ORDERED: METO50ER PO (18:02)
--- NOTE | 2023-10-12 19:13 | NUR ---
DC- PT LEFT IN STABLE CONDITION AT 1905 BHARAT AFTFER THIS RN DISCUSSED ALL DC PAPERWORK/MEDS IN DETAIL WITH MOTHER AND PT. PT BROUGHT DOWN IN WC BY SUZANNE FOR SENSOR OPERATOR.
== END 2023-10-12 19:02 | disposition home or self-care (01) | DRG 286 ==
LOC: ER 13:08 → ICUE 15:32 → MEDS 15:32 → ICUE 15:47 → PCU 10-06 14:11 → MEDS 10-08 16:33
PROVIDERS: Emergency Medicine; Family Medicine; Internal Medicine; Internal Medicine Critical Care Medicine; ADMIT Internal Medicine
PROC: 0DH67UZ Insertion of Feeding Device into Stomach, Via Natural or Artificial Opening (ICD-10-PCS; 2023-10-03)
PROC: 0T9B70Z Drainage of Bladder with Drainage Device, Via Natural or Artificial Opening (ICD-10-PCS; 2023-10-03)
PROC: 5A1945Z Respiratory Ventilation, 24-96 Consecutive Hours (ICD-10-PCS; 2023-10-03)
PROC: 0BH17EZ Insertion of Endotracheal Airway into Trachea, Via Natural or Artificial Opening (ICD-10-PCS; 2023-10-03)
PROC: 5A12012 Performance of Cardiac Output, Single, Manual (ICD-10-PCS; 2023-10-03)
PROC: 4A023N7 Measurement of Cardiac Sampling and Pressure, Left Heart, Percutaneous Approach (ICD-10-PCS; principal; 2023-10-07)
PROC: B2111ZZ Fluoroscopy of Multiple Coronary Arteries using Low Osmolar Contrast (ICD-10-PCS; 2023-10-07)
DX: I49.01 Ventricular fibrillation (principal); G92.8 Other toxic encephalopathy; J15.212 Pneumonia due to Methicillin resistant Staphylococcus aureus; J96.01 Acute respiratory failure with hypoxia; I50.22 Chronic systolic (congestive) heart failure; Z68.41 Body mass index [BMI] 40.0-44.9, adult; E87.20 Acidosis, unspecified; E03.9 Hypothyroidism, unspecified; G40.409 Other generalized epilepsy and epileptic syndromes, not intractable, without status epilepticus; I42.0 Dilated cardiomyopathy; I44.7 Left bundle-branch block, unspecified; I11.0 Hypertensive heart disease with heart failure; E11.9 Type 2 diabetes mellitus without complications; R94.31 Abnormal electrocardiogram [ECG] [EKG]; K80.20 Calculus of gallbladder without cholecystitis without obstruction; K21.9 Gastro-esophageal reflux disease without esophagitis; E78.5 Hyperlipidemia, unspecified; K29.70 Gastritis, unspecified, without bleeding; I46.2 Cardiac arrest due to underlying cardiac condition; T44.7X5A Adverse effect of beta-adrenoreceptor antagonists, initial encounter; Z96.651 Presence of right artificial knee joint; E66.01 Morbid (severe) obesity due to excess calories; Z88.0 Allergy status to penicillin; Z79.890 Hormone replacement therapy; Z79.899 Other long term (current) drug therapy; Z98.890 Other specified postprocedural states
CPT/HCPCS: 31500; 36415; 51702; 70450; 71045; 71046; 76937; 78451; 80048; 80053; 80069; 80202; 81001; 82550; 82803; 82947; 83605; 83615; 83735; 84100; 84145; 84146; 84439; 84443; 84481; 84484; 85025; 85027; 85610; 85730; 87070; 87077; 87086; 87186; 87205; 93005; 93010; 93306; 93458; 94002; 94003; 94640; 94664; 94760; 94762; 96365-59; 96366-59; 96375-59; 97110; 97162; 97165; 97530; 97535; 99152; 99153; 99291-25; 99292; A9270; A9500; C1769; C1887; C1894; C9113; J0282; J0330; J0690; J1644; J1650; J1953; J2060; J2250; J2704; J2920; J3010; J3370; J3475; J3480; J7030; J7040; J7050; J7060; Q9967

== ENCOUNTER 2024-08-31 07:11 | Emergency (ER) | payer OTHER ==
[~2024-08-31] VITALS: Ht 154.9 cm; Wt 88.5 kg
[~2024-08-31 07:11] MED LIST changes: +EUTHYROX175 MC1 PO; +JARDIANCE10 MG PO; +LEVE500 PO; +METO50ER PO; +OMEP20ER PO; +PACERONE100 M1 PO
[2024-08-31] MEDS ORDERED: Ketorolac Tromethamine 30mg Vial IV ONE (08:35)
[2024-08-31] MEDS ORDERED: Ondansetron HCl 2 MG / ML 2ML Vial IV ONE (08:35)
[2024-08-31 09:15] LABS: BASOPHILS ABSOLUTE AUTO 0.02 K/mm3 (0.00-0.23); BASOPHILS PERCENT AUTO 0 % (0-2); EOSINOPHILS ABSOLUTE AUTO 0.01 K/mm3 (0.00-0.68); EOSINOPHILS PERCENT AUTO 0 % (0-6); Hematocrit 42.1 % (33.0-51.0); Hemoglobin 13.4 g/dL (11.5-16.0); IMMATURE GRAN ABSOLUTE AUTO 0.03 K/mm3 (0.00-0.10); IMMATURE GRAN PERCENT AUTO 0 % (0-1); LYMPHOCYTES ABSOLUTE AUTO 0.71 K/mm3 (0.84-5.20); LYMPHOCYTES PERCENT AUTO 8 % (21-46); MONOCYTES ABSOLUTE AUTO 0.43 K/mm3 (0.16-1.47); MONOCYTES PERCENT AUTO 5 % (4-13); Mean Corpuscular HGB Conc 31.8 g/dL (31.5-36.5); Mean Corpuscular Volume 94 fL (80-100); Mean Platelet Volume 9.6 fL (9.1-12.4); NEUTROPHILS ABSOLUTE AUTO 8.09 K/mm3 (1.96-9.15); NEUTROPHILS PERCENT AUTO 87 % (41-73); Platelet Count 315 K/mm3 (150-400); RDW Coefficient Variation 13.7 % (11.7-14.2); Red Blood Cell Count 4.46 M/mm3 (3.80-5.20); White Blood Cell Count 9.29 K/mm3 (4.00-11.30)
[2024-08-31 09:33] LABS: Albumin, Blood 3.5 g/dL (3.4-5.0); Bilirubin, Total 0.3 mg/dL (0.1-1.0); Bun/Creatinine Ratio 22.5 (12.0-20.0); Calcium, Blood 9.4 mg/dL (8.5-10.1); Creatinine, Blood 0.75 mg/dL (0.40-1.00); Globulin, Blood 3.5 g/dL (2.2-4.0); Potassium, Blood 4.5 mmol/L (3.5-5.5)
[2024-08-31 11:38] LABS: Source, Urine Clean Catch
[2024-08-31 11:49] LABS: Bilirubin, Urine Neg (Neg); Blood, Urine 1+ (Neg); Glucose Qualitative, Urine 3+ (Neg); Ketones, Urine Neg (Neg); Leukocyte Esterase, Urine Neg (Neg); Nitrite, Urine Neg (Neg); Protein, Urine 2+ (Neg); Urobilinogen, Urine NORM (Normal)
[2024-08-31 12:43] LABS: Appearance, Urine Clear (Clear); Color, Urine Yellow (P-Yellow)
[2024-08-31 12:45] LABS: Bacteria Rare /hpf; Red Blood Cells, Urine 0-2 /hpf (0-2); Squamous Epithelial Cells Few /hpf (Few); White Blood Cells, Urine 0-2 /hpf (0-5)
[2024-08-31] MEDS ORDERED: ONDA4ODT MM (12:52)
[2024-08-31] MEDS ORDERED: FAMO20 PO (12:52)
[2024-08-31 13:00] VITALS: BP 105/94
[2024-08-31] MEDS ORDERED: Donnatal E16.2 MG/5 PO (21:13)
== END 2024-08-31 13:33 | disposition home or self-care (01) ==
LOC: ER 07:11
PROVIDERS: Student in an Organized Health Care Education/Training Program
DX: R10.13 Epigastric pain (principal); R11.2 Nausea with vomiting, unspecified; I11.0 Hypertensive heart disease with heart failure; I50.20 Unspecified systolic (congestive) heart failure; K21.9 Gastro-esophageal reflux disease without esophagitis; K27.9 Peptic ulcer, site unspecified, unspecified as acute or chronic, without hemorrhage or perforation; E78.5 Hyperlipidemia, unspecified; E03.9 Hypothyroidism, unspecified; E11.9 Type 2 diabetes mellitus without complications; Z79.899 Other long term (current) drug therapy; Z88.0 Allergy status to penicillin
CPT/HCPCS: 36415; 74177; 80053; 81001; 83690; 84484; 85025; 93005; 93010; 96374-59; 96375; 99283; 99284-25; A9270; J1885; J2405; P9612; Q9967